=== PATIENT | male | born 1985 | race Caucasian/White ===

== ENCOUNTER 2020-05-27 20:33 | Emergency (ER) | payer MEDICAID ==
[~2020-05-27] VITALS: Ht 170.2 cm; Wt 81.6 kg
[2020-05-27 20:47] VITALS: Ht 170.2 cm; Wt 81.6 kg
[2020-05-28 01:08] VITALS: BP 117/83
== END 2020-05-28 01:08 | disposition home or self-care (01) ==
LOC: ED 20:33
DX: S09.90XA Unspecified injury of head, initial encounter (principal); R55 Syncope and collapse; R56.9 Unspecified convulsions; B20 Human immunodeficiency virus [HIV] disease; W22.8XXA Striking against or struck by other objects, initial encounter; Y93.89 Activity, other specified; Y92.89 Other specified places as the place of occurrence of the external cause; Y99.8 Other external cause status
CPT/HCPCS: 82962